=== PATIENT | female | born 1950 | race Caucasian/White ===

== ENCOUNTER 2017-12-08 14:48 | Outpatient (CLI) | payer MEDICARE | END 2017-12-08 14:49 | disposition home or self-care (01) | LOC: BICMAMMO 14:48 | PROVIDERS: ATTEND Student in an Organized Health Care Education/Training Program | DX: Z12.31 Encounter for screening mammogram for malignant neoplasm of breast (principal); Z80.3 Family history of malignant neoplasm of breast | CPT/HCPCS: 77063; 77067 ==

== ENCOUNTER 2018-03-11 10:44 | Emergency (ER) | payer MEDICARE ==
--- NOTE | 2018-03-11 14:50 | RAD ---
CHEST 2 VIEWS: Date: 03/11/18 HISTORY: Cough. COMPARISON: Radiograph dated 12/02/17. FINDINGS: Lungs are mildly hyperinflated. No focal air space consolidation, pneumothorax, or effusion. Soft tis sues are unremarkable. Old left-sided rib fractures. IMPRESSION: Hyperinflation suggesting obstructive pulmonary disease. POS: [facility]
== END 2018-03-11 14:19 | disposition home or self-care (01) ==
LOC: ERS 10:44
DX: K13.79 Other lesions of oral mucosa (principal); E78.5 Hyperlipidemia, unspecified; I10 Essential (primary) hypertension; E11.9 Type 2 diabetes mellitus without complications; Z79.4 Long term (current) use of insulin; Z79.899 Other long term (current) drug therapy
CPT/HCPCS: 71046

== ENCOUNTER 2020-05-29 12:40 | Outpatient (CLI) | payer MEDICARE, OTHER | END 2020-05-29 12:41 | disposition home or self-care (01) | LOC: BICMAMMO 12:40 | PROVIDERS: ATTEND Student in an Organized Health Care Education/Training Program | DX: Z12.31 Encounter for screening mammogram for malignant neoplasm of breast (principal); Z13.820 Encounter for screening for osteoporosis; Z80.3 Family history of malignant neoplasm of breast; M85.851 Other specified disorders of bone density and structure, right thigh; M81.0 Age-related osteoporosis without current pathological fracture | CPT/HCPCS: 77063; 77067; 77080 ==

== ENCOUNTER 2020-12-11 02:06 | Emergency (ER) | payer OTHER, MEDICAID ==
[2020-12-11 02:39] LABS: #Eosinphils 0.2 thou/uL (0.0-0.7); #Lymphocytes 2.5 thou/uL (1.20-3.40); #Neutrophils 6.7 thou/uL (1.40-6.50); %Basophils 0.4 % (0.0-1.0); %Eosinophils 1.9 % (0.0-10.0); %Lymphocytes 23.7 % (21.0-51.0); %Monocytes 9.8 % (0.0-10.0); %Neutrophils 64.2 % (42.0-75.0); Hemoglobin 12.4 g/dL (12.0-16.0); Mean Corpuscular HGB CONC 34.4 g/dL (32.0-36.0); Mean Corpuscular Hemoglobin 31.3 pg (27.0-31.0); Mean Platelet Volume 6.9 fL (7.4-10.4); Platelet Count 286 thou/uL (130-400); RBC Distribution Width 12.8 % (11.5-14.5); Red Blood Cell (RBC) Count 3.97 mill/uL (4.20-5.40); White Blood Cell (WBC) Count 10.4 thou/uL (4.8-10.8)
[2020-12-11 02:59] LABS: ALT (SGPT) 15 U/L (8-55); AST (SGOT) 22 U/L (5-34); Albumin 4.2 g/dL (3.4-4.8); Alkaline Phosphatase 107 U/L (40-110); Anion Gap 16 mmol/L (10-20); BUN (Urea Nitrogen) 33 mg/dL (9.8-20.1); Bilirubin, Total 0.5 mg/dL (0.2-1.2); Calc. Creatinine Clearance 0 mL/min (70-130); Calcium 8.5 mg/dL (7.8-10.44); Carbon Dioxide 28 mmol/L (23-31); Chloride 100 mmol/L (98-107); Globulin 3.2 g/dL (2.4-3.5); Glucose 185 mg/dL (83-110); Lipase Less than 4 U/L (8-78); Potassium 3.2 mmol/L (3.5-5.1); Protein, Total 7.4 g/dL (5.8-8.1); Sodium 141 mmol/L (136-145)
[2020-12-11 03:05] LABS: Bilirubin Negative (Negative); Blood, Urine Negative (Negative); Clarity Clear (Clear); Glucose, Urine (Dipstick) 300 mg/dL (Negative); Ketone, Urine Negative (Negative); Leukocyte 500 Leu/uL (Negative); Nitrite Negative (Negative); Protein, Urine (Dipstick) 30 mg/dL (Neg-Trace); RBC/HPF 0-3 HPF (0-3); Renal Epithelial 0-3 HPF (None Seen); Squamous Epithelial 0-3 HPF (0-3); Urobilinogen Normal mg/dL (Less than 2); WBC/HPF 21-50 HPF (0-3); pH, Urine 7.5 (5.0-9.0)
[2020-12-11 03:06] LABS: Bacteria/HPF 1+ HPF (None Seen)
[2020-12-11] MEDS ORDERED: cefTRIAXone\\ROCEPHIN 1 GM VIAL ONE (03:52)
== END 2020-12-11 06:00 | disposition home or self-care (01) ==
LOC: ERS 02:06
DX: K80.20 Calculus of gallbladder without cholecystitis without obstruction (principal); K57.90 Diverticulosis of intestine, part unspecified, without perforation or abscess without bleeding; N39.0 Urinary tract infection, site not specified; R91.1 Solitary pulmonary nodule; E78.5 Hyperlipidemia, unspecified; E78.00 Pure hypercholesterolemia, unspecified; I10 Essential (primary) hypertension; Z79.4 Long term (current) use of insulin; Z79.899 Other long term (current) drug therapy
CPT/HCPCS: 36415; 71045; 74176; 80053; 81003; 81015; 83690; 85025; 86850; 86900; 86901; 87086; 93005; 96374; J0696

== ENCOUNTER 2021-03-01 04:35 | Observation (INO) | payer MEDICARE, MEDICAID ==
[2021-03-01 05:13] LABS: #Eosinphils 0.3 thou/uL (0.0-0.7); #Lymphocytes 1.7 thou/uL (1.20-3.40); #Monocytes 0.7 thou/uL (0.11-0.59); #Neutrophils 3.7 thou/uL (1.40-6.50); %Basophils 0.6 % (0.0-1.0); %Eosinophils 4.1 % (0.0-10.0); %Lymphocytes 26.8 % (21.0-51.0); %Neutrophils 57.6 % (42.0-75.0); Hemoglobin 12.1 g/dL (12.0-16.0); Mean Corpuscular HGB CONC 35.2 g/dL (32.0-36.0); Mean Corpuscular Hemoglobin 31.9 pg (27.0-31.0); Mean Corpuscular Volume 90.6 fL (78.0-98.0); Mean Platelet Volume 7.1 fL (7.4-10.4); Platelet Count 231 thou/uL (130-400); RBC Distribution Width 12.3 % (11.5-14.5); White Blood Cell (WBC) Count 6.4 thou/uL (4.8-10.8)
[2021-03-01 05:32] LABS: ALT (SGPT) 14 U/L (8-55); AST (SGOT) 15 U/L (5-34); Albumin 3.8 g/dL (3.4-4.8); Alkaline Phosphatase 97 U/L (40-110); Anion Gap 15 mmol/L (10-20); BUN (Urea Nitrogen) 32 mg/dL (9.8-20.1); Bilirubin, Total 0.4 mg/dL (0.2-1.2); Calc. Creatinine Clearance 0 mL/min (70-130); Calcium 9.1 mg/dL (7.8-10.44); Carbon Dioxide 28 mmol/L (23-31); Chloride 100 mmol/L (98-107); Globulin 2.8 g/dL (2.4-3.5); Glucose 267 mg/dL (83-110); Potassium 3.5 mmol/L (3.5-5.1); Protein, Total 6.6 g/dL (5.8-8.1); Sodium 139 mmol/L (136-145)
[2021-03-01] MEDS ORDERED: Ondansetron PF 4 MG/2 ML Vial ONE (05:32)
[2021-03-01] MEDS ORDERED: Acetaminophen 325 MG TAB PO PRN (07:12)
[2021-03-01] MEDS ORDERED: Ondansetron ODT 4 MG TAB PO PRN (07:12)
[2021-03-01] MEDS ORDERED: Calcium Carbonate 500 MG ChewTAB PO PRN (07:12)
[2021-03-01] MEDS ORDERED: HumaLOG 300 UNITS/3 ML VIAL SC PRN ×2 (07:24)
[2021-03-01] MEDS ORDERED: Dextrose 50% Abboject 50 ML SYRINGE SLOW IVP PRN (07:24)
[2021-03-01] MEDS ORDERED: Dextrose 5% in Water 1,000 ML IV PRN (07:24)
[2021-03-01] MEDS ORDERED: Lactated Ringer's 1,000 ML IV SCH (07:30)
[2021-03-01 08:50] VITALS: BMI 18.9
[2021-03-01 08:53] LABS: Troponin I 0.027 ng/mL (< 0.028)
[2021-03-01] MEDS ORDERED: Promethazine HCl 25 MG in Sodium Chloride 0.9% 50 ML IVPB SCH (09:00)
[2021-03-01] MEDS ORDERED: Enoxaparin Sodium 30 MG/0.3 ML SYRINGE SC SCH (09:00)
[2021-03-01] MEDS ORDERED: Amlodipine 10 MG TAB PO SCH (10:15)
[2021-03-01] MEDS ORDERED: Aspirin 325 MG TAB PO SCH (10:30)
[2021-03-01] MEDS ORDERED: ADENOSINE 60 MG/20 ML VIAL ONE (10:32)
[2021-03-01] MEDS ORDERED: HumaLOG 300 UNITS/3 ML VIAL SC SCH ×2 (11:00→17:00)
[2021-03-01] MEDS ORDERED: Non-Formulary Item 1 EACH (Insulin Aspart [Novolog Flexpen] 100 UNIT/ML Insuln.Pen) SQ SCH ×2 (11:00→17:00)
[2021-03-01 13:35] LABS: Hemoglobin A1c 7.9 % (4.0-6.0)
[2021-03-01 15:24] VITALS: BP 162/76; TEMP 97.8
[2021-03-01 17:26] LABS: SARS-CoV-2 PCR by NAA Not Detected (NotDetected)
[2021-03-01] MEDS ORDERED: Non-Formulary Item 1 EACH (Insulin Detemir [Levemir Flextouch] 100 UNIT/ML Insuln.Pen) SQ SCH (21:00)
[2021-03-01] MEDS ORDERED: Atorvastatin Calcium 40 MG TAB PO SCH (21:00)
[2021-03-01] MEDS ORDERED: Metoprolol Tartrate 50 MG TAB PO SCH (21:00)
[2021-03-01] MEDS ORDERED: Lantus 1000 UNITS/10 ML VIAL SC SCH (21:00)
[2021-03-02] MEDS ORDERED: Non-Formulary Item 1 EACH (Insulin Detemir [Levemir Flextouch] 100 UNIT/ML Insuln.Pen) SQ SCH (09:00)
[2021-03-02] MEDS ORDERED: Non-Formulary Item 1 EACH (Cholecalciferol (Vitamin D3) [Vitamin D3] 2,000 UNIT Capsule) PO SCH (09:00)
[2021-03-02] MEDS ORDERED: Losartan 25 MG TAB PO SCH (09:00)
[2021-03-02] MEDS ORDERED: Lantus 1000 UNITS/10 ML VIAL SC SCH (09:00)
[2021-03-02] MEDS ORDERED: Aspirin 81 mg Enteric Coated Tablet PO SCH (09:00)
[2021-03-02] MEDS ORDERED: Amlodipine 10 MG TAB PO SCH (09:00)
[2021-03-02] MEDS ORDERED: Cholecalciferol 1,000 UNITS (25 MCG) TAB PO SCH (09:00)
[2021-03-02] MEDS ORDERED: Non-Formulary Item 1 EACH (Losartan Potassium [Cozaar] 50 MG Tab) PO SCH (09:00)
== END 2021-03-01 17:03 | disposition home or self-care (01) ==
LOC: ERS 04:35 → 2SW 06:27
PROVIDERS: ADMIT Family Medicine; ATTEND Family Medicine
DX: R11.0 Nausea (principal); R42 Dizziness and giddiness; R74.8 Abnormal levels of other serum enzymes; I12.0 Hypertensive chronic kidney disease with stage 5 chronic kidney disease or end stage renal disease; E11.22 Type 2 diabetes mellitus with diabetic chronic kidney disease; N18.6 End stage renal disease; E78.5 Hyperlipidemia, unspecified; I70.0 Atherosclerosis of aorta; M25.522 Pain in left elbow; E78.00 Pure hypercholesterolemia, unspecified; Z79.4 Long term (current) use of insulin; Z79.899 Other long term (current) drug therapy; Z20.822 Contact with and (suspected) exposure to COVID-19
CPT/HCPCS: 71045; 78452; 82553; 82962; 83036; 84484 ×2; 93005; 93017; 96374; 99285; A9500; U0003; U0005; 36415; 36416; 80053; 84443; 85025; 96375; G0378; J0153; J2405; J2550; J7120; Q0162

== ENCOUNTER 2021-04-13 09:09 | Inpatient (IN) | payer MEDICARE, MEDICAID ==
[2021-04-13 10:02] LABS: #Eosinphils 0.2 thou/uL (0.0-0.7); #Lymphocytes 1.3 thou/uL (1.20-3.40); #Monocytes 0.6 thou/uL (0.11-0.59); #Neutrophils 4.7 thou/uL (1.40-6.50); %Basophils 0.3 % (0.0-1.0); %Eosinophils 2.2 % (0.0-10.0); %Lymphocytes 18.6 % (21.0-51.0); %Monocytes 9.2 % (0.0-10.0); %Neutrophils 69.6 % (42.0-75.0); Hemoglobin 11.2 g/dL (12.0-16.0); Mean Corpuscular HGB CONC 33.7 g/dL (32.0-36.0); Mean Corpuscular Hemoglobin 30.9 pg (27.0-31.0); Mean Corpuscular Volume 91.8 fL (78.0-98.0); Mean Platelet Volume 7.2 fL (7.4-10.4); Platelet Count 235 thou/uL (130-400); RBC Distribution Width 12.5 % (11.5-14.5); Red Blood Cell (RBC) Count 3.61 mill/uL (4.20-5.40); White Blood Cell (WBC) Count 6.8 thou/uL (4.8-10.8)
[2021-04-13 10:28] LABS: INR-International Normal Ratio 1.1; PTT 27.9 sec (22.9-36.1)
[2021-04-13 10:36] LABS: ALT (SGPT) 27 U/L (8-55); AST (SGOT) 22 U/L (5-34); Albumin 3.8 g/dL (3.4-4.8); Alkaline Phosphatase 99 U/L (40-110); Anion Gap 16 mmol/L (10-20); BUN (Urea Nitrogen) 39 mg/dL (9.8-20.1); Bilirubin, Total 0.5 mg/dL (0.2-1.2); Calc. Creatinine Clearance 0 mL/min (70-130); Calcium 9.3 mg/dL (7.8-10.44); Carbon Dioxide 29 mmol/L (23-31); Chloride 99 mmol/L (98-107); Globulin 2.4 g/dL (2.4-3.5); Glucose 249 mg/dL (83-110); Magnesium 1.1 mg/dL (1.6-2.6); Potassium 3.6 mmol/L (3.5-5.1); Protein, Total 6.2 g/dL (5.8-8.1); Sodium 140 mmol/L (136-145)
[2021-04-13] MEDS ORDERED: Ondansetron ODT 4 MG TAB ONE (11:14)
[2021-04-13] MEDS ORDERED: Acetaminophen 500 MG TAB ONE (11:14)
[2021-04-13 11:31] LABS: Bacteria/HPF None Seen HPF (None Seen); Bilirubin Negative (Negative); Blood, Urine Negative (Negative); Clarity Clear (Clear); Glucose, Urine (Dipstick) 100 mg/dL (Negative); Ketone, Urine Negative (Negative); Leukocyte 75 Leu/uL (Negative); Nitrite Negative (Negative); Protein, Urine (Dipstick) 10 mg/dL (Neg-Trace); RBC/HPF 0-3 HPF (0-3); Squamous Epithelial 0-3 HPF (0-3); Urobilinogen Normal mg/dL (Less than 2)
[2021-04-13] MEDS ORDERED: cefTRIAXone\\ROCEPHIN 2 GM VIAL ONE (12:36)
[2021-04-13] MEDS ORDERED: Magnesium 2 GM/50 ML BAG (IN WATER) ONE (12:36)
[2021-04-13 15:22] LABS: SARS-CoV-2 NAA Rapid Test Not Detected (NotDetected)
[2021-04-13] MEDS ORDERED: Dextrose 5% in Water 1,000 ML IV PRN (15:38)
[2021-04-13] MEDS ORDERED: Dextrose 50% Abboject 50 ML SYRINGE SLOW IVP PRN (15:38)
[2021-04-13] MEDS ORDERED: Ondansetron ODT 4 MG TAB PO PRN (16:24)
[2021-04-13 16:27] VITALS: BMI 19.4
[2021-04-13] MEDS: Lactated Ringer's 1,000 ML IV SCH (17:09)
[2021-04-13 18:18] LABS: Phosphorus 2.7 mg/dL (2.3-4.7)
[2021-04-13] MEDS: Heparin 5,000 UNITS/ML VIAL SC SCH (20:29)
[2021-04-13] MEDS: Melatonin 3 MG TAB PO SCH (20:30)
[2021-04-13] MEDS: Atorvastatin Calcium 40 MG TAB PO SCH (20:30)
[2021-04-13] MEDS: Metoprolol Tartrate 50 MG TAB PO SCH (20:30)
[2021-04-13] MEDS: Lantus 1000 UNITS/10 ML VIAL SC SCH (20:30)
[2021-04-13] MEDS: HumaLOG 300 UNITS/3 ML VIAL SC PRN (20:31)
[2021-04-13] MEDS ORDERED: Enoxaparin Sodium 40 MG/0.4 ML SYRINGE SC SCH (21:00)
[2021-04-13] MEDS: Acetaminophen 325 MG TAB PO PRN (21:53)
[2021-04-14] MEDS: Lactated Ringer's 1,000 ML IV SCH (01:09)
[2021-04-14 06:52] LABS: Anion Gap 13 mmol/L (10-20); BUN (Urea Nitrogen) 31 mg/dL (9.8-20.1); Calc. Creatinine Clearance 27 mL/min (70-130); Calcium 9.1 mg/dL (7.8-10.44); Carbon Dioxide 30 mmol/L (23-31); Chloride 105 mmol/L (98-107); Glucose 95 mg/dL (83-110); Magnesium 1.3 mg/dL (1.6-2.6); Potassium 3.5 mmol/L (3.5-5.1); Sodium 144 mmol/L (136-145)
[2021-04-14] MEDS: Cholecalciferol 1,000 UNITS (25 MCG) TAB PO SCH (08:49)
[2021-04-14] MEDS: Amlodipine 10 MG TAB PO SCH (08:50)
[2021-04-14] MEDS: Losartan 25 MG TAB PO SCH (08:50)
[2021-04-14] MEDS: Heparin 5,000 UNITS/ML VIAL SC SCH ×2 (08:50→21:17)
[2021-04-14] MEDS: Metoprolol Tartrate 50 MG TAB PO SCH ×2 (08:50→21:18)
[2021-04-14] MEDS: Lantus 1000 UNITS/10 ML VIAL SC SCH ×2 (08:51→21:18)
[2021-04-14] MEDS ORDERED: hydrALAZINE 20 MG/ML VIAL SLOW IVP PRN (11:58)
[2021-04-14] MEDS: HumaLOG 300 UNITS/3 ML VIAL SC PRN ×2 (12:14→21:18)
[2021-04-14] MEDS: Atorvastatin Calcium 40 MG TAB PO SCH (21:17)
[2021-04-14] MEDS: Acetaminophen 325 MG TAB PO PRN (21:17)
[2021-04-14] MEDS: Melatonin 3 MG TAB PO SCH (21:18)
[2021-04-14] MEDS: Magnesium Oxide 400 MG TAB PO SCH (21:18)
[2021-04-15 07:26] LABS: Magnesium 1.5 mg/dL (1.6-2.6)
[2021-04-15] MEDS: Losartan 25 MG TAB PO SCH (08:50)
[2021-04-15] MEDS: Amlodipine 10 MG TAB PO SCH (08:51)
[2021-04-15] MEDS: Metoprolol Tartrate 50 MG TAB PO SCH ×2 (08:51→20:16)
[2021-04-15] MEDS: Magnesium Oxide 400 MG TAB PO SCH ×2 (08:51→20:16)
[2021-04-15] MEDS: Cholecalciferol 1,000 UNITS (25 MCG) TAB PO SCH (08:51)
[2021-04-15] MEDS: Heparin 5,000 UNITS/ML VIAL SC SCH ×2 (08:52→20:16)
[2021-04-15] MEDS: Lantus 1000 UNITS/10 ML VIAL SC SCH ×2 (08:54→20:16)
[2021-04-15] MEDS ORDERED: Polyethylene Glycol 3350 17 GM Packet PO SCH (09:45)
[2021-04-15] MEDS: HumaLOG 300 UNITS/3 ML VIAL SC PRN ×2 (12:18→17:51)
[2021-04-15] MEDS: Atorvastatin Calcium 40 MG TAB PO SCH (20:15)
[2021-04-15] MEDS: Melatonin 3 MG TAB PO SCH (20:15)
[2021-04-15] MEDS: Acetaminophen 325 MG TAB PO PRN (20:15)
[2021-04-16 06:28] LABS: Magnesium 1.6 mg/dL (1.6-2.6)
[2021-04-16] MEDS: Heparin 5,000 UNITS/ML VIAL SC SCH ×2 (09:01→20:23)
[2021-04-16] MEDS: Losartan 25 MG TAB PO SCH (09:01)
[2021-04-16] MEDS: Amlodipine 10 MG TAB PO SCH (09:01)
[2021-04-16] MEDS: Cholecalciferol 1,000 UNITS (25 MCG) TAB PO SCH (09:01)
[2021-04-16] MEDS: Magnesium Oxide 400 MG TAB PO SCH (09:02)
[2021-04-16] MEDS: Lantus 1000 UNITS/10 ML VIAL SC SCH ×2 (09:02→20:25)
[2021-04-16] MEDS: Metoprolol Tartrate 50 MG TAB PO SCH ×2 (09:02→20:25)
[2021-04-16] MEDS: Polyethylene Glycol 3350 17 GM Packet PO SCH (09:09)
[2021-04-16] MEDS ORDERED: Polyethylene Glycol 3350 17 GM Packet PO SCH (12:15)
[2021-04-16] MEDS: HumaLOG 300 UNITS/3 ML VIAL SC PRN (17:41)
[2021-04-16] MEDS: Atorvastatin Calcium 40 MG TAB PO SCH (20:24)
[2021-04-16] MEDS: Melatonin 3 MG TAB PO SCH (20:33)
[2021-04-17] MEDS: Heparin 5,000 UNITS/ML VIAL SC SCH (08:33)
[2021-04-17] MEDS: Losartan 25 MG TAB PO SCH (08:33)
[2021-04-17] MEDS: Polyethylene Glycol 3350 17 GM Packet PO SCH (08:33)
[2021-04-17] MEDS: Lantus 1000 UNITS/10 ML VIAL SC SCH (08:34)
[2021-04-17] MEDS: Amlodipine 10 MG TAB PO SCH (08:34)
[2021-04-17] MEDS: Cholecalciferol 1,000 UNITS (25 MCG) TAB PO SCH (08:34)
[2021-04-17] MEDS: Metoprolol Tartrate 50 MG TAB PO SCH (08:34)
[2021-04-17 17:42] VITALS: BP 169/84; TEMP 97.6
[2021-04-17] MEDS ORDERED: Lantus 1000 UNITS/10 ML VIAL SC SCH (21:00)
== END 2021-04-17 18:03 | disposition home health service (06) | DRG 641 ==
LOC: ERS 09:09 → T4-A 15:27 → OBSVTOIN 04-15 12:59
PROVIDERS: ADMIT Emergency Medicine; ATTEND Emergency Medicine
DX: E83.42 Hypomagnesemia (principal); N17.9 Acute kidney failure, unspecified; N18.4 Chronic kidney disease, stage 4 (severe); E44.0 Moderate protein-calorie malnutrition; Z68.1 Body mass index [BMI] 19.9 or less, adult; Z20.822 Contact with and (suspected) exposure to COVID-19; R53.81 Other malaise; K59.09 Other constipation; E11.22 Type 2 diabetes mellitus with diabetic chronic kidney disease; E78.00 Pure hypercholesterolemia, unspecified; I12.9 Hypertensive chronic kidney disease with stage 1 through stage 4 chronic kidney disease, or unspecified chronic kidney disease; E78.5 Hyperlipidemia, unspecified; Z79.4 Long term (current) use of insulin; Z79.899 Other long term (current) drug therapy; Z90.89 Acquired absence of other organs
CPT/HCPCS: 36415; 36416; 80048; 80053; 81003; 81015; 83735; 84100; 84484; 85025; 85610; 85730; 93005; 96365; 96375; 96376; G0378; J0360; J0696; J1644; J1815; J3475; J7120; Q0162; U0002

== ENCOUNTER 2021-07-04 22:26 | Observation (INO) | payer MEDICARE, MEDICAID ==
[2021-07-04] MEDS ORDERED: Morphine 4 MG/ML VIAL ONE (23:57)
[2021-07-04] MEDS ORDERED: Ondansetron PF 4 MG/2 ML Vial ONE (23:57)
[2021-07-05 00:25] LABS: Mean Corpuscular HGB CONC 33.5 g/dL (32.0-36.0); Mean Corpuscular Hemoglobin 31.6 pg (27.0-31.0); Mean Corpuscular Volume 94.1 fL (78.0-98.0); Mean Platelet Volume 6.6 fL (7.4-10.4); Platelet Count 302 thou/uL (130-400); RBC Distribution Width 13.5 % (11.5-14.5); Red Blood Cell (RBC) Count 3.49 mill/uL (4.20-5.40)
[2021-07-05 00:33] LABS: Carbon Dioxide 25 mmol/L (23-31); Chloride 102 mmol/L (98-107); Potassium 3.9 mmol/L (3.5-5.1); Sodium 139 mmol/L (136-145)
[2021-07-05 00:34] LABS: ALT (SGPT) 20 U/L (8-55); AST (SGOT) 20 U/L (5-34); Albumin 3.8 g/dL (3.4-4.8); Alkaline Phosphatase 111 U/L (40-110); Anion Gap 16 mmol/L (10-20); BUN (Urea Nitrogen) 43 mg/dL (9.8-20.1); Bilirubin, Total 0.4 mg/dL (0.2-1.2); Calc. Creatinine Clearance 0 mL/min (70-130); Calcium 9.2 mg/dL (7.8-10.44); Globulin 2.7 g/dL (2.4-3.5); Glucose 181 mg/dL (83-110); Lipase Less than 4 U/L (8-78); Magnesium 1.7 mg/dL (1.6-2.6); Protein, Total 6.5 g/dL (5.8-8.1)
[2021-07-05 00:39] LABS: Band 32 % (5-11); Lymphocytes 1 % (21-51); MDiff Complete? YES; Metamyelocyte 2 % (0-0); Monocytes 3 % (0-10); Neutrophil 62 % (42-75); Platelet Morphology Comment Appears Adequate; RBC Morphology Normal; White Blood Cell (WBC) Count 24.7 thou/uL (4.8-10.8)
[2021-07-05] MEDS ORDERED: cefTRIAXone\\ROCEPHIN 1 GM VIAL ONE (02:25)
[2021-07-05] MEDS ORDERED: Piperacillin/Tazobactam 3.375 GM VIAL ONE (03:49)
[2021-07-05 05:10] LABS: SARS-CoV-2 NAA Rapid Test Not Detected (NotDetected)
[2021-07-05] MEDS ORDERED: Sodium Chloride 0.9% 1,000 ML IV SCH (06:00)
[2021-07-05] MEDS ORDERED: Ondansetron ODT 4 MG TAB SL PRN (06:00)
[2021-07-05] MEDS ORDERED: Ondansetron PF 4 MG/2 ML Vial IVP PRN (06:00)
[2021-07-05 06:03] VITALS: BMI 19.3
[2021-07-05] MEDS ORDERED: Ketorolac Tromethamine 30 MG/ML VIAL IVP PRN (10:41)
[2021-07-05] MEDS ORDERED: Ketorolac Tromethamine 30 MG/ML VIAL IVP SCH (10:45)
[2021-07-05] MEDS ORDERED: Scopolamine 1.5 mg/72 hour Patch TD SCH (12:00)
[2021-07-05] MEDS ORDERED: Indomethacin 50 MG SUPP ONE (12:27)
[2021-07-05] MEDS ORDERED: Lidocaine 1% w/Epinephrine 1:100K 20 ML VIAL ONE (12:32)
[2021-07-05] MEDS ORDERED: Bupivacaine 0.25% 10 ML VIAL ONE (12:32)
[2021-07-05] MEDS ORDERED: Iopamidol 15 ML ONE (12:32)
[2021-07-05] MEDS ORDERED: Iopamidol 30 ML ONE (12:41)
[2021-07-05] MEDS ORDERED: fentaNYL Citrate/PF 100 MCG/2 ML SYRINGE ONE (12:53)
[2021-07-05] MEDS ORDERED: PHENYLEPHRINE-NS 100 MCG/ML 10 ML SYRINGE ONE (13:03)
[2021-07-05] MEDS ORDERED: Lidocaine 1% PF 5 ML VIAL ONE (13:03)
[2021-07-05] MEDS ORDERED: PROPOFOL 200 MG/20 ML VIAL ONE (13:03)
[2021-07-05] MEDS ORDERED: Rocuronium Bromide 10 MG/ML (10ML VIAL) ONE (13:03)
[2021-07-05] MEDS ORDERED: Glycopyrrolate 0.2 MG/ML 5 ML SYRINGE ONE (13:03)
[2021-07-05] MEDS ORDERED: SUGAMMADEX SODIUM 200 MG/2 ML VIAL ONE (14:48)
[2021-07-05] MEDS ORDERED: Promethazine HCl 25 MG/ML VIAL IVPB PRN (15:00)
[2021-07-05] MEDS ORDERED: Promethazine HCl 25 MG/ML VIAL IM PRN (15:00)
[2021-07-05] MEDS ORDERED: Ondansetron HCl/PF 4 MG/2 ML Vial IVP PRN (15:00)
[2021-07-05] MEDS ORDERED: Fentanyl 100 MCG/2 ML VIAL ONE ×2 (15:10→15:48)
[2021-07-05] MEDS ORDERED: Dextrose 5% in Water 1,000 ML IV PRN (15:18)
[2021-07-05] MEDS ORDERED: Dextrose 50% Abboject 50 ML SYRINGE SLOW IVP PRN (15:18)
[2021-07-05] MEDS ORDERED: HumaLOG 300 UNITS/3 ML VIAL SC PRN (15:18)
[2021-07-05] MEDS ORDERED: Ondansetron ODT 4 MG TAB PO PRN (15:19)
[2021-07-05] MEDS: Lactated Ringer's 1,000 ML IV SCH ×2 (17:24→20:48)
[2021-07-05] MEDS: traMADol HCl 50 MG TAB PO PRN (17:25)
[2021-07-05] MEDS: HumaLOG 300 UNITS/3 ML VIAL SC SCH (17:25)
[2021-07-05] MEDS: Acetaminophen 500 MG TAB PO SCH ×2 (17:25→23:20)
[2021-07-05] MEDS: Insulin Glargine 30 UNITS/0.3 ML VIAL SC SCH (20:44)
[2021-07-05] MEDS: Metoprolol Tartrate 50 MG TAB PO SCH (20:44)
[2021-07-05] MEDS: Atorvastatin Calcium 40 MG TAB PO SCH (20:44)
[2021-07-06 05:41] LABS: #Lymphocytes 0.9 thou/uL (1.20-3.40); #Monocytes 1.2 thou/uL (0.11-0.59); #Neutrophils 9.9 thou/uL (1.40-6.50); %Basophils 0.1 % (0.0-1.0); %Eosinophils 0.2 % (0.0-10.0); %Lymphocytes 7.6 % (21.0-51.0); %Monocytes 9.7 % (0.0-10.0); %Neutrophils 82.4 % (42.0-75.0); Hemoglobin 11.2 g/dL (12.0-16.0); Mean Corpuscular HGB CONC 33.7 g/dL (32.0-36.0); Mean Corpuscular Hemoglobin 32.4 pg (27.0-31.0); Mean Corpuscular Volume 96.1 fL (78.0-98.0); Mean Platelet Volume 6.7 fL (7.4-10.4); Platelet Count 231 thou/uL (130-400); RBC Distribution Width 13.7 % (11.5-14.5); Red Blood Cell (RBC) Count 3.45 mill/uL (4.20-5.40)
[2021-07-06] MEDS: Acetaminophen 500 MG TAB PO SCH ×3 (05:56→17:12)
[2021-07-06 06:09] LABS: ALT (SGPT) 108 U/L (8-55); AST (SGOT) 125 U/L (5-34); Albumin 3.2 g/dL (3.4-4.8); Alkaline Phosphatase 105 U/L (40-110); Anion Gap 14 mmol/L (10-20); BUN (Urea Nitrogen) 31 mg/dL (9.8-20.1); Bilirubin, Total 0.8 mg/dL (0.2-1.2); Calc. Creatinine Clearance 29 mL/min (70-130); Calcium 8.7 mg/dL (7.8-10.44); Carbon Dioxide 23 mmol/L (23-31); Chloride 105 mmol/L (98-107); Globulin 2.6 g/dL (2.4-3.5); Glucose 98 mg/dL (83-110); Protein, Total 5.8 g/dL (5.8-8.1); Sodium 138 mmol/L (136-145)
[2021-07-06] MEDS: Citrucel 500 MG TAB PO SCH (08:04)
[2021-07-06] MEDS: traMADol HCl 50 MG TAB PO PRN (08:04)
[2021-07-06] MEDS: Metoprolol Tartrate 50 MG TAB PO SCH ×2 (08:04→20:38)
[2021-07-06] MEDS: Polyethylene Glycol 3350 17 GM Packet PO SCH (08:04)
[2021-07-06] MEDS: Insulin Glargine 30 UNITS/0.3 ML VIAL SC SCH ×2 (08:05→20:39)
[2021-07-06] MEDS: Cholecalciferol 1,000 UNITS (25 MCG) TAB PO SCH (08:05)
[2021-07-06] MEDS: Losartan 25 MG TAB PO SCH (08:05)
[2021-07-06] MEDS: Amlodipine 10 MG TAB PO SCH (08:05)
[2021-07-06] MEDS ORDERED: Polyethylene Glycol 3350 17 GM Packet PO SCH (09:00)
[2021-07-06] MEDS ORDERED: Ondansetron ORAL SOLN. 4 MG/5 ML UDCUP PO PRN ×2 (10:49)
[2021-07-06] MEDS ORDERED: Ondansetron ODT 4 MG TAB PO PRN (10:49)
[2021-07-06] MEDS ORDERED: Ondansetron ODT 8 MG TAB PO PRN (10:49)
[2021-07-06] MEDS: HumaLOG 300 UNITS/3 ML VIAL SC SCH ×2 (11:46→17:12)
[2021-07-06] MEDS: Atorvastatin Calcium 40 MG TAB PO SCH (20:38)
[2021-07-07] MEDS: Acetaminophen 500 MG TAB PO SCH ×3 (00:44→11:16)
[2021-07-07] MEDS: Citrucel 500 MG TAB PO SCH (08:58)
[2021-07-07] MEDS: Amlodipine 10 MG TAB PO SCH (08:58)
[2021-07-07] MEDS: Losartan 25 MG TAB PO SCH (08:58)
[2021-07-07] MEDS: Insulin Glargine 30 UNITS/0.3 ML VIAL SC SCH (08:59)
[2021-07-07] MEDS: Cholecalciferol 1,000 UNITS (25 MCG) TAB PO SCH (08:59)
[2021-07-07] MEDS: Polyethylene Glycol 3350 17 GM Packet PO SCH (08:59)
[2021-07-07] MEDS: Metoprolol Tartrate 50 MG TAB PO SCH (08:59)
[2021-07-07] MEDS: traMADol HCl 50 MG TAB PO PRN (09:01)
[2021-07-07] MEDS: HumaLOG 300 UNITS/3 ML VIAL SC SCH (11:15)
[2021-07-07 11:46] VITALS: BP 147/72; TEMP 98
== END 2021-07-07 15:25 | disposition home or self-care (01) ==
LOC: ERS 22:26 → SJJU 07-05 03:15
PROVIDERS: ADMIT Specialist; ATTEND Specialist
PROC: 0FT44ZZ Resection of Gallbladder, Percutaneous Endoscopic Approach (ICD-10-PCS; principal; 2021-07-05)
PROC: BF101ZZ Fluoroscopy of Bile Ducts using Low Osmolar Contrast (ICD-10-PCS; 2021-07-05)
PROC: 0DB78ZX Excision of Stomach, Pylorus, Via Natural or Artificial Opening Endoscopic, Diagnostic (ICD-10-PCS; 2021-07-05)
DX: K80.10 Calculus of gallbladder with chronic cholecystitis without obstruction (principal); K83.8 Other specified diseases of biliary tract; K29.50 Unspecified chronic gastritis without bleeding; K26.3 Acute duodenal ulcer without hemorrhage or perforation; K52.9 Noninfective gastroenteritis and colitis, unspecified; I12.9 Hypertensive chronic kidney disease with stage 1 through stage 4 chronic kidney disease, or unspecified chronic kidney disease; E11.22 Type 2 diabetes mellitus with diabetic chronic kidney disease; N18.9 Chronic kidney disease, unspecified; E78.5 Hyperlipidemia, unspecified; I70.0 Atherosclerosis of aorta; M75.32 Calcific tendinitis of left shoulder; M75.31 Calcific tendinitis of right shoulder; N13.30 Unspecified hydronephrosis; K57.30 Diverticulosis of large intestine without perforation or abscess without bleeding; R53.83 Other fatigue; Z79.4 Long term (current) use of insulin; Z79.899 Other long term (current) drug therapy; Z20.822 Contact with and (suspected) exposure to COVID-19
CPT/HCPCS: 43239; 47532; 47563; 71045; 74176; 76705; 80053 ×2; 82962 ×3; 83605; 83690; 83735; 83880; 85025 ×2; 87040; 93005; 97116; 97139 ×2; 99285; C1713 ×2; J1610; U0002; 36415; 36416; 88304; 88305; 88342; 96375; 96376; G0378; J0696; J1815; J1885; J1956; J2270; J2405; J2543; J2704; J3010; J7050; J7120; Q0162; Q9967; S0020

== ENCOUNTER 2021-07-10 20:18 | Inpatient (IN) | payer MEDICARE, MEDICAID ==
[2021-07-10 20:55] LABS: #Basophils 0.1 thou/uL (0.0-0.2); #Eosinphils 0.2 thou/uL (0.0-0.7); #Lymphocytes 1.2 thou/uL (1.20-3.40); #Monocytes 1.1 thou/uL (0.11-0.59); #Neutrophils 8.5 thou/uL (1.40-6.50); %Basophils 0.5 % (0.0-1.0); %Lymphocytes 10.7 % (21.0-51.0); %Monocytes 9.8 % (0.0-10.0); Hemoglobin 10.6 g/dL (12.0-16.0); Mean Corpuscular HGB CONC 34.1 g/dL (32.0-36.0); Mean Corpuscular Hemoglobin 32.4 pg (27.0-31.0); Mean Platelet Volume 6.7 fL (7.4-10.4); Platelet Count 342 thou/uL (130-400); RBC Distribution Width 13.5 % (11.5-14.5); Red Blood Cell (RBC) Count 3.27 mill/uL (4.20-5.40)
[2021-07-10 21:07] LABS: Bacteria/HPF None Seen HPF (None Seen); Bilirubin Negative (Negative); Blood, Urine Negative (Negative); Clarity Clear (Clear); Glucose, Urine (Dipstick) 300 mg/dL (Negative); Ketone, Urine Negative (Negative); Leukocyte Negative Leu/uL (Negative); Nitrite Negative (Negative); Protein, Urine (Dipstick) 30 mg/dL (Neg-Trace); RBC/HPF 0-3 HPF (0-3); Squamous Epithelial 0-3 HPF (0-3); Urobilinogen Normal mg/dL (Less than 2); WBC/HPF 0-3 HPF (0-3)
[2021-07-10 21:13] LABS: ALT (SGPT) 112 U/L (8-55); AST (SGOT) 98 U/L (5-34); Albumin 3.6 g/dL (3.4-4.8); Alkaline Phosphatase 427 U/L (40-110); Anion Gap 17 mmol/L (10-20); BUN (Urea Nitrogen) 25 mg/dL (9.8-20.1); Bilirubin, Total 0.8 mg/dL (0.2-1.2); CK (CPK) 34 U/L (29-168); Calc. Creatinine Clearance 0 mL/min (70-130); Calcium 9.2 mg/dL (7.8-10.44); Carbon Dioxide 27 mmol/L (23-31); Chloride 96 mmol/L (98-107); Globulin 3.1 g/dL (2.4-3.5); Glucose 360 mg/dL (83-110); Potassium 3.7 mmol/L (3.5-5.1); Protein, Total 6.7 g/dL (5.8-8.1); Sodium 136 mmol/L (136-145)
[2021-07-10] MEDS ORDERED: Ondansetron PF 4 MG/2 ML Vial ONE (21:59)
[2021-07-11] MEDS ORDERED: Dextrose 5% in Water 1,000 ML IV PRN (00:33)
[2021-07-11] MEDS ORDERED: Dextrose 50% Abboject 50 ML SYRINGE SLOW IVP PRN (00:33)
[2021-07-11] MEDS ORDERED: traMADol HCl 50 MG TAB PO PRN (00:44)
[2021-07-11 00:57] LABS: Magnesium 1.4 mg/dL (1.6-2.6)
[2021-07-11] MEDS: Lactated Ringer's 1,000 ML IV SCH ×3 (01:21→18:21)
[2021-07-11 01:23] VITALS: BMI 19.3
[2021-07-11] MEDS ORDERED: hydrALAZINE 20 MG/ML VIAL SLOW IVP PRN (01:34)
[2021-07-11] MEDS: Acetaminophen 325 MG TAB PO PRN ×2 (04:00→20:02)
[2021-07-11 04:46] LABS: #Eosinphils 0.2 thou/uL (0.0-0.7); #Monocytes 0.9 thou/uL (0.11-0.59); #Neutrophils 7.3 thou/uL (1.40-6.50); %Basophils 0.2 % (0.0-1.0); %Eosinophils 1.6 % (0.0-10.0); %Neutrophils 77.2 % (42.0-75.0); Hemoglobin 10.1 g/dL (12.0-16.0); Mean Corpuscular HGB CONC 33.9 g/dL (32.0-36.0); Mean Corpuscular Hemoglobin 32.2 pg (27.0-31.0); Mean Corpuscular Volume 94.9 fL (78.0-98.0); Mean Platelet Volume 6.3 fL (7.4-10.4); Platelet Count 311 thou/uL (130-400); RBC Distribution Width 13.4 % (11.5-14.5); Red Blood Cell (RBC) Count 3.13 mill/uL (4.20-5.40); White Blood Cell (WBC) Count 9.4 thou/uL (4.8-10.8)
[2021-07-11 04:58] LABS: Hemoglobin A1c 8.3 % (4.0-6.0)
[2021-07-11 05:06] LABS: ALT (SGPT) 94 U/L (8-55); AST (SGOT) 68 U/L (5-34); Albumin 3.4 g/dL (3.4-4.8); Alkaline Phosphatase 382 U/L (40-110); Anion Gap 16 mmol/L (10-20); BUN (Urea Nitrogen) 21 mg/dL (9.8-20.1); Bilirubin, Total 0.7 mg/dL (0.2-1.2); Calc. Creatinine Clearance 25 mL/min (70-130); Calcium 8.8 mg/dL (7.8-10.44); Carbon Dioxide 26 mmol/L (23-31); Chloride 98 mmol/L (98-107); Globulin 2.9 g/dL (2.4-3.5); Glucose 372 mg/dL (83-110); Magnesium 1.7 mg/dL (1.6-2.6); Potassium 3.8 mmol/L (3.5-5.1); Protein, Total 6.3 g/dL (5.8-8.1); Sodium 136 mmol/L (136-145)
[2021-07-11] MEDS: HumaLOG 300 UNITS/3 ML VIAL SC PRN (05:54)
[2021-07-11] MEDS: Enoxaparin Sodium 30 MG/0.3 ML SYRINGE SC SCH (08:36)
[2021-07-11] MEDS: Metoprolol Tartrate 50 MG TAB PO SCH ×2 (08:37→20:02)
[2021-07-11] MEDS: Aspirin 81 mg Enteric Coated Tablet PO SCH (08:37)
[2021-07-11] MEDS: Magnesium Oxide 400 MG TAB PO SCH (08:37)
[2021-07-11] MEDS: Cholecalciferol 1,000 UNITS (25 MCG) TAB PO SCH (08:37)
[2021-07-11] MEDS: HumaLOG 300 UNITS/3 ML VIAL SC SCH ×3 (08:37→16:39)
[2021-07-11] MEDS: Insulin Glargine 30 UNITS/0.3 ML VIAL SC SCH (08:37)
[2021-07-11] MEDS: Amlodipine 10 MG TAB PO SCH (08:37)
[2021-07-11 16:18] LABS: SARS-CoV-2 PCR by NAA Not Detected (NotDetected)
[2021-07-11] MEDS ORDERED: Lactated Ringer's 1,000 ML IV SCH (17:30)
[2021-07-11] MEDS ORDERED: Clindamycin/D5W 300 MG/50 ML BAG IVPB SCH (18:30)
[2021-07-11] MEDS: Atorvastatin Calcium 40 MG TAB PO SCH (20:02)
[2021-07-11] MEDS ORDERED: Insulin Glargine 30 UNITS/0.3 ML VIAL SC SCH (21:00)
[2021-07-11] MEDS ORDERED: Lantus 1000 UNITS/10 ML VIAL SC SCH (21:00)
[2021-07-11] MEDS: Clindamycin 150 MG CAP PO SCH (21:39)
[2021-07-12] MEDS: Lactated Ringer's 1,000 ML IV SCH ×5 (01:12→13:50)
[2021-07-12] MEDS: HumaLOG 300 UNITS/3 ML VIAL SC PRN (04:37)
[2021-07-12] MEDS: Enoxaparin Sodium 30 MG/0.3 ML SYRINGE SC SCH (07:51)
[2021-07-12] MEDS: Insulin Glargine 30 UNITS/0.3 ML VIAL SC SCH ×3 (07:51→21:55)
[2021-07-12] MEDS: Clindamycin 150 MG CAP PO SCH ×3 (07:52→20:03)
[2021-07-12] MEDS: Amlodipine 10 MG TAB PO SCH (07:52)
[2021-07-12] MEDS: Aspirin 81 mg Enteric Coated Tablet PO SCH (07:52)
[2021-07-12] MEDS: HumaLOG 300 UNITS/3 ML VIAL SC SCH ×3 (07:52→16:44)
[2021-07-12] MEDS: Cholecalciferol 1,000 UNITS (25 MCG) TAB PO SCH (07:52)
[2021-07-12] MEDS: Metoprolol Tartrate 50 MG TAB PO SCH ×2 (07:52→20:03)
[2021-07-12] MEDS: Magnesium Oxide 400 MG TAB PO SCH (07:52)
[2021-07-12] MEDS: Ondansetron ODT 4 MG TAB PO PRN (08:00)
[2021-07-12] MEDS ORDERED: hydrALAZINE 20 MG/ML VIAL SLOW IVP PRN (08:55)
[2021-07-12] MEDS ORDERED: Losartan 25 MG TAB PO SCH (09:45)
[2021-07-12] MEDS ORDERED: Lidocaine Viscous Sol 2% 15 ml UD Cup SSP PRN (11:44)
[2021-07-12] MEDS ORDERED: Cepastat Lozenges 1 LOZ PO PRN (11:44)
[2021-07-12] MEDS: Aluminum & Magnesium Hydroxide 60 ML, Lidocaine 2% Viscous Solution 30 ML, diphenhydrAM... SSW PRN (12:55)
[2021-07-12] MEDS: Atorvastatin Calcium 40 MG TAB PO SCH (20:03)
[2021-07-12] MEDS: Acetaminophen 325 MG TAB PO PRN (20:03)
[2021-07-13] MEDS: Lactated Ringer's 1,000 ML IV SCH ×2 (06:08→09:05)
[2021-07-13] MEDS: Aspirin 81 mg Enteric Coated Tablet PO SCH (08:43)
[2021-07-13] MEDS: Magnesium Oxide 400 MG TAB PO SCH (08:43)
[2021-07-13] MEDS: Enoxaparin Sodium 30 MG/0.3 ML SYRINGE SC SCH (08:43)
[2021-07-13] MEDS: Losartan 25 MG TAB PO SCH (08:44)
[2021-07-13] MEDS: Cholecalciferol 1,000 UNITS (25 MCG) TAB PO SCH (08:44)
[2021-07-13] MEDS: Clindamycin 150 MG CAP PO SCH ×3 (08:44→20:00)
[2021-07-13] MEDS: Amlodipine 10 MG TAB PO SCH (08:45)
[2021-07-13] MEDS: Metoprolol Tartrate 50 MG TAB PO SCH ×2 (08:45→20:01)
[2021-07-13] MEDS: HumaLOG 300 UNITS/3 ML VIAL SC SCH ×3 (08:45→16:20)
[2021-07-13] MEDS: Insulin Glargine 30 UNITS/0.3 ML VIAL SC SCH ×3 (08:46→20:04)
[2021-07-13] MEDS: Ondansetron ODT 4 MG TAB PO PRN (12:30)
[2021-07-13] MEDS: HumaLOG 300 UNITS/3 ML VIAL SC PRN (16:21)
[2021-07-13] MEDS: Atorvastatin Calcium 40 MG TAB PO SCH (20:01)
[2021-07-13] MEDS ORDERED: Benzonatate 100 MG CAP PO SCH (20:15)
[2021-07-14] MEDS: Benzonatate 100 MG CAP PO SCH ×3 (07:49→20:00)
[2021-07-14] MEDS: Enoxaparin Sodium 30 MG/0.3 ML SYRINGE SC SCH (07:49)
[2021-07-14] MEDS: Insulin Glargine 30 UNITS/0.3 ML VIAL SC SCH (07:49)
[2021-07-14] MEDS: Aspirin 81 mg Enteric Coated Tablet PO SCH (07:49)
[2021-07-14] MEDS: Magnesium Oxide 400 MG TAB PO SCH (07:49)
[2021-07-14] MEDS: HumaLOG 300 UNITS/3 ML VIAL SC SCH ×3 (07:49→16:38)
[2021-07-14] MEDS: Amlodipine 10 MG TAB PO SCH (07:50)
[2021-07-14] MEDS: Metoprolol Tartrate 50 MG TAB PO SCH ×2 (07:50→20:00)
[2021-07-14] MEDS: Cholecalciferol 1,000 UNITS (25 MCG) TAB PO SCH (07:50)
[2021-07-14] MEDS: Clindamycin 150 MG CAP PO SCH ×3 (07:50→20:00)
[2021-07-14] MEDS: Losartan 25 MG TAB PO SCH (07:50)
[2021-07-14] MEDS: HumaLOG 300 UNITS/3 ML VIAL SC PRN (16:38)
[2021-07-14] MEDS: Atorvastatin Calcium 40 MG TAB PO SCH (20:00)
[2021-07-15] MEDS: Acetaminophen 325 MG TAB PO PRN (04:22)
[2021-07-15] MEDS: HumaLOG 300 UNITS/3 ML VIAL SC PRN (06:05)
[2021-07-15] MEDS: Enoxaparin Sodium 30 MG/0.3 ML SYRINGE SC SCH (07:50)
[2021-07-15] MEDS: Clindamycin 150 MG CAP PO SCH ×3 (07:51→20:01)
[2021-07-15] MEDS: Magnesium Oxide 400 MG TAB PO SCH (07:51)
[2021-07-15] MEDS: Cholecalciferol 1,000 UNITS (25 MCG) TAB PO SCH (07:51)
[2021-07-15] MEDS: Losartan 25 MG TAB PO SCH (07:51)
[2021-07-15] MEDS: Benzonatate 100 MG CAP PO SCH ×3 (07:51→20:01)
[2021-07-15] MEDS: Amlodipine 10 MG TAB PO SCH (07:51)
[2021-07-15] MEDS: Aspirin 81 mg Enteric Coated Tablet PO SCH (07:51)
[2021-07-15] MEDS: Metoprolol Tartrate 50 MG TAB PO SCH ×2 (07:52→20:01)
[2021-07-15] MEDS: Insulin Glargine 30 UNITS/0.3 ML VIAL SC SCH (07:52)
[2021-07-15] MEDS: HumaLOG 300 UNITS/3 ML VIAL SC SCH ×3 (07:52→16:59)
[2021-07-15] MEDS: Ondansetron ODT 4 MG TAB PO PRN (09:56)
[2021-07-15 13:21] LABS: #Eosinphils 0.2 thou/uL (0.0-0.7); #Lymphocytes 1.2 thou/uL (1.20-3.40); #Monocytes 1.1 thou/uL (0.11-0.59); #Neutrophils 10.8 thou/uL (1.40-6.50); %Basophils 0.2 % (0.0-1.0); %Eosinophils 1.6 % (0.0-10.0); %Lymphocytes 9.2 % (21.0-51.0); %Monocytes 8.3 % (0.0-10.0); %Neutrophils 80.7 % (42.0-75.0); Hemoglobin 10.6 g/dL (12.0-16.0); Mean Corpuscular HGB CONC 32.8 g/dL (32.0-36.0); Mean Corpuscular Hemoglobin 31.3 pg (27.0-31.0); Mean Corpuscular Volume 95.3 fL (78.0-98.0); Platelet Count 463 thou/uL (130-400); RBC Distribution Width 13.6 % (11.5-14.5); Red Blood Cell (RBC) Count 3.38 mill/uL (4.20-5.40); White Blood Cell (WBC) Count 13.4 thou/uL (4.8-10.8)
[2021-07-15 13:41] LABS: ALT (SGPT) 62 U/L (8-55); AST (SGOT) 52 U/L (5-34); Albumin 3.4 g/dL (3.4-4.8); Alkaline Phosphatase 384 U/L (40-110); Anion Gap 18 mmol/L (10-20); BUN (Urea Nitrogen) 16 mg/dL (9.8-20.1); Bilirubin, Total 0.6 mg/dL (0.2-1.2); Calc. Creatinine Clearance 24 mL/min (70-130); Calcium 8.8 mg/dL (7.8-10.44); Carbon Dioxide 26 mmol/L (23-31); Chloride 98 mmol/L (98-107); Gamma GT (GGT) 247 U/L (9-36); Globulin 3.5 g/dL (2.4-3.5); Glucose 166 mg/dL (83-110); Potassium 4.2 mmol/L (3.5-5.1); Protein, Total 6.9 g/dL (5.8-8.1); Sodium 138 mmol/L (136-145)
[2021-07-15] MEDS: Aluminum & Magnesium Hydroxide 60 ML, Lidocaine 2% Viscous Solution 30 ML, diphenhydrAM... SSW PRN (13:48)
[2021-07-15] MEDS: Atorvastatin Calcium 40 MG TAB PO SCH (20:01)
[2021-07-15] MEDS ORDERED: Non-Formulary Item 1 EACH (Insulin Detemir [Levemir Flextouch] 100 UNIT/ML Insuln.Pen) SQ SCH (21:00)
[2021-07-15] MEDS ORDERED: Insulin Glargine 30 UNITS/0.3 ML VIAL SC SCH (21:00)
[2021-07-16] MEDS: Cholecalciferol 1,000 UNITS (25 MCG) TAB PO SCH (08:47)
[2021-07-16] MEDS: Benzonatate 100 MG CAP PO SCH ×2 (08:47→15:29)
[2021-07-16] MEDS: Magnesium Oxide 400 MG TAB PO SCH (08:47)
[2021-07-16] MEDS: Aspirin 81 mg Enteric Coated Tablet PO SCH (08:47)
[2021-07-16] MEDS: Amlodipine 10 MG TAB PO SCH (08:48)
[2021-07-16] MEDS: Metoprolol Tartrate 50 MG TAB PO SCH (08:48)
[2021-07-16] MEDS: Losartan 25 MG TAB PO SCH (08:48)
[2021-07-16] MEDS: Clindamycin 150 MG CAP PO SCH ×2 (08:48→15:29)
[2021-07-16] MEDS: Enoxaparin Sodium 30 MG/0.3 ML SYRINGE SC SCH (08:48)
[2021-07-16] MEDS: HumaLOG 300 UNITS/3 ML VIAL SC SCH ×2 (08:51→12:07)
[2021-07-16] MEDS ORDERED: Non-Formulary Item 1 EACH (Insulin Detemir [Levemir Flextouch] 100 UNIT/ML Insuln.Pen) SQ SCH (09:00)
[2021-07-16] MEDS ORDERED: Insulin Glargine 30 UNITS/0.3 ML VIAL SC SCH (09:00)
[2021-07-16 16:33] VITALS: BP 144/79; TEMP 98.2
== END 2021-07-16 16:44 | disposition home health service (06) | DRG 158 ==
LOC: ERS 20:18 → T4-A 23:59 → OBSVTOIN 07-12 08:57
PROVIDERS: ADMIT Family Medicine; ATTEND Family Medicine
DX: K12.1 Other forms of stomatitis (principal); N18.4 Chronic kidney disease, stage 4 (severe); E86.0 Dehydration; J02.9 Acute pharyngitis, unspecified; Z20.822 Contact with and (suspected) exposure to COVID-19; E11.22 Type 2 diabetes mellitus with diabetic chronic kidney disease; I12.9 Hypertensive chronic kidney disease with stage 1 through stage 4 chronic kidney disease, or unspecified chronic kidney disease; E78.5 Hyperlipidemia, unspecified; E83.42 Hypomagnesemia; R74.01 Elevation of levels of liver transaminase levels; E11.65 Type 2 diabetes mellitus with hyperglycemia; D63.1 Anemia in chronic kidney disease; E55.9 Vitamin D deficiency, unspecified; M81.0 Age-related osteoporosis without current pathological fracture; K29.50 Unspecified chronic gastritis without bleeding; K26.7 Chronic duodenal ulcer without hemorrhage or perforation; Z28.311 Partially vaccinated for COVID-19; Z90.49 Acquired absence of other specified parts of digestive tract; Z90.09 Acquired absence of other part of head and neck; Z79.899 Other long term (current) drug therapy; Z79.4 Long term (current) use of insulin
CPT/HCPCS: 36415; 36416; 51701; 71045; 74176; 80053; 81003; 81015; 82550; 82977; 83036; 83605; 83735; 84145; 84484; 85025; 87040; 87070; 87081; 87086; 87205; 87430; 87804; 93005; 96365; 96372; 96374; 96375; G0378; J1650; J1815; J2405; J3475; J3490; J7120; Q0162; Q0163; U0003; U0005

== ENCOUNTER 2022-06-23 09:40 | Outpatient (CLI) | payer OTHER | END 2022-06-23 09:41 | disposition home or self-care (01) | LOC: BICMAMMO 09:40 | PROVIDERS: ATTEND Emergency Medicine | DX: Z12.31 Encounter for screening mammogram for malignant neoplasm of breast (principal) | CPT/HCPCS: 77063; 77067 ==

== ENCOUNTER 2022-11-03 09:52 | Outpatient (CLI) | payer OTHER, MEDICAID | END 2022-11-03 09:53 | disposition home or self-care (01) | LOC: BICULT 09:52 | PROVIDERS: ATTEND Student in an Organized Health Care Education/Training Program | DX: N13.30 Unspecified hydronephrosis (principal) | CPT/HCPCS: 76770; 93975 ==

== ENCOUNTER 2022-12-29 13:37 | Outpatient (CLI) | payer OTHER, MEDICAID | END 2022-12-29 13:38 | disposition home or self-care (01) | LOC: DTY/OP 13:37 | PROVIDERS: ATTEND Student in an Organized Health Care Education/Training Program | DX: E11.29 Type 2 diabetes mellitus with other diabetic kidney complication (principal); Z90.49 Acquired absence of other specified parts of digestive tract | CPT/HCPCS: 97802 ==